=== PATIENT | male | born 1955 | race American Indian/Alaskan Native ===

== ENCOUNTER 2022-02-20 16:41 | Emergency (ER) | payer MEDICARE ==
[2022-02-20 16:47] VITALS: BP 96/58
--- NOTE | 2022-02-20 17:34 | Emergency Department Report ---
ED General Adult HPI - General Chief complaint: Dyspnea/Respdistress Stated complaint: DIFFICULTY BREATHING PUI?: No Time Seen by Provider: 02/20/22 17:26 Source: RN/MD Mode of arrival: Ambulatory Limitations: No Limitations - History of Present Illness Initial comments: Entire information obtained from the RN. This is a 66 year old male who is brought in by EMS from home. Patient have stage 4 lung cancer and is on home hospice and today home health nurse as well as hospice nurse visited the patient and noticed that he is short of breath and morphine was given at home but they have told the family to bring the patient into the ER because patient is more short of breath. Per nurse, patient is full code and is currently trying to get in touch with the family as what they would like us to do. During my initial evaluation, patient is 100% on - Related Data Allergies Allergy/AdvReac Type Severity Reaction Status Date / Time No Known Allergies Allergy Verified 02/20/22 16:47 ED Review of Systems ROS: Stated complaint: DIFFICULTY BREATHING Other details as noted in HPI ED Physical Exam - General Limitations: No Limitations ED Course Vital Signs 02/20/22 16:45 Pulse Rate 122 H Respiratory 30 H Rate Blood Pressure 96/58 [Left] O2 Sat by Pulse 99 Oximetry - Reevaluation(s) Reevaluation #1: 02/20/22 18:13 I HAVE SPOKE TO THE SON (PRIMARY CARBONATION EQUIPMENT OPERATOR) ANTHONY AT [phone] ON SPEAKER PHONE IN FRONT OF NURSING STAFF THAT ANTHONY STATES COMFORT MEASURE FOR NOW UNTIL HE GETS HERE ABOUT 20 MINUTES; WHICH HE IS AWARE OF NO INTUBATION AND NO PHLEBOTOMY. WAITING FOR THE SON/ANTHONY TO ARRIVE TO DISCUSS FURTHER. 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 After extensive conversation with the family family would like the patient to be DNR/DNI and also continue his home hospice with comfort measures. Family would like patient to be transferred home by ambulance. 02/20/22 18:57 I HAVE FILLED OUT THE DNR/I FORM AND GIVEN TO THE NURSE. Critical Care Time: No Critical care attestation.: If time is entered above; I have spent that time in minutes in the direct care of this critically ill patient, excluding procedure time. ED Disposition Clinical Impression: Respiratory failure, Acute metabolic encephalopathy Disposition: 01 HOME / SELF CARE / HOMELESS Is pt being admited?: No Does the pt Need Aspirin: No Condition: Stable Instructions: Toxic Metabolic Encephalopathy Time of Disposition: 18:53
[2022-02-20] MEDS ORDERED: NALOXONE 0.4 MG/1 ML INJ ONE (17:43)
[2022-02-20] MEDS ORDERED: NALOXONE 2 MG/2 ML INJ IV ONE (17:45)
--- NOTE | 2022-02-20 18:27 | XRay Report ---
Chest single view INDICATION: Dyspnea IMPRESSION: Complete opacification of the right hemithorax with prominent pleural-parenchymal densiti es within the left lower lung. The heart size is normal. Signer Name: Tristen Bailey MD Signed: 02/20/2022 6:23 PM Workstation Name: [email or web address]
== END 2022-02-21 00:13 | disposition home or self-care (01) ==
LOC: ED 16:41
DX: J96.90 Respiratory failure, unspecified, unspecified whether with hypoxia or hypercapnia (principal); G93.41 Metabolic encephalopathy
CPT/HCPCS: 71045; 96374; 99285; J2310